=== PATIENT | female | born 1970 | race Caucasian/White ===

== ENCOUNTER 2018-05-09 04:23 | Emergency (ER) | payer SELFPAY ==
[~2018-05-09] VITALS: Ht 162.6 cm; Wt 74.8 kg
[2018-05-09 04:30] VITALS: BP 163/78
[2018-05-09] MEDS ORDERED: IBUPROFEN600 MG ORAL (04:35)
--- NOTE | 2018-05-09 04:35 | Emergency Room Report ---
History of Present Illness General Chief Complaint: Pain Source: Patient Present Illness HPI Is a 47-year-old female with a history of scoliosis with Thomas chilo. Patient presents with chief complaint of back pain. She claimed that [place] the train and hurt her back. This occur few days ago. No other complaint. Pain is 9 out of 10. Worse with movement. No nausea no vomiting. No incontinence of bowel or urine. Denies any other complaint. Allergies: Coded Allergies: No Known Allergies (Unverified , 05/09/18) Patient History Past Medical History: see triage record, old chart reviewed Past Surgical History: other - back surgery Pertinent Family History: none Social History: Denies: smoking Last Menstrual Period: 05/02/18 Now: No - tubal ligation 2012 Immunizations: other Reviewed Nursing Documentation: PMH: Agreed; PSxH: Agreed Nursing Documentation-PMH Past Medical History: No History, Except For Review of Systems Eye: Denies: eye pain, blurred vision ENT: Denies: ear pain, nose congestion, throat swelling Respiratory: Denies: cough, shortness of breath Cardiovascular: Denies: chest pain, palpitations Gastrointestinal: Denies: abdominal pain, diarrhea, nausea, vomiting Musculoskeletal: Reports: back pain; Denies: joint pain Skin: Denies: rash Neurological: Denies: headache, numbness Endocrine: Denies: increased thirst, increased urine Hematologic/Lymphatic: Denies: easy bruising All Other Systems: negative except mentioned in HPI Physical Exam Vital Signs Date Time Temp Pulse Resp B/P (MAP) Pulse Ox O2 Delivery O2 Flow Rate FiO2 05/09/18 04:20 97.9 74 16 163/84 99 Room Air 97.9 vitals with high blood pressure Sp02 EP Interpretation: reviewed, normal General Appearance: well appearing, no apparent distress, alert Head: normocephalic, atraumatic Eyes: bilateral eye PERRL, bilateral eye EOMI ENT: hearing grossly normal, normal pharynx Neck: full range of motion, supple, no meningismus Respiratory: chest non-tender, lungs clear, normal breath sounds Cardiovascular #1: regular rate, rhythm, no murmur Gastrointestinal: normal bowel sounds, non tender, no mass, no organomegaly, no bruit, non-distended Musculoskeletal: back normal - diffuse tenderness. No trauma, gait/station normal, normal range of motion Psychiatric: mood/affect normal Skin: warm/dry Medical Decision Making Diagnostic Impression: Primary Impression: Low back pain Qualified Codes: M54.5 - Low back pain ER Course This patient presents with lower back pain. No evidence of any fracture dislocation. No unconscious or bowel or urine. No evidence of cauda equina syndrome, spinal epidural abscess or neoplastic process. We'll discharge home. Last Vital Signs Date Time Temp Pulse Resp B/P (MAP) Pulse Ox O2 Delivery O2 Flow Rate FiO2 05/09/18 04:20 97.9 74 16 163/84 99 Room Air 97.9 Status: improved Disposition: HOME, SELF-CARE Condition: Stable Scripts Ibuprofen* (MOTRIN*) 600 Mg Tablet 600 MG ORAL THREE TIMES A DAY, #30 TAB 0 Refills Prov: FLEX JAMES M.D. 05/09/18 Additional Instructions: Follow-up with your doctor in 7 days. Return if symptom worsen. FLEX JAMES M.D. May 09, 2018 04:35
[2018-05-09] MEDS ORDERED: Norco 5mg/325mg tab ORAL ONE (04:45)
[2018-05-09 05:38] VITALS: BP 147/69
[2018-05-09 05:52] VITALS: BP 147/69
== END 2018-05-09 05:54 | disposition home or self-care (01) ==
LOC: EDBD 04:23 → EMR 04:38
DX: M54.5 Low back pain (principal)
CPT/HCPCS: 99283